=== PATIENT | female | born 1995 | race Caucasian/White ===

== ENCOUNTER 2022-05-26 12:34 | Outpatient (CLI) | payer OTHER, SELFPAY ==
--- NOTE | 2022-05-26 13:00 | CRLHL7_ITS ---
For Patients: As a result of the Cures Act, medical imaging exams and procedure reports are released immediately into your electronic medical record. You may view this report before your referring provider. If you have questions, please contact your health care provider. INDICATION: First trimester scan, establish dates. COMPARISON: None. TECHNIQUE: Real-time hamilton-scale imaging of the pelvis was performed. FINDINGS: Sonographic imaging demonstrates a single living intrauterine gestation. The embryo demonstrates a regular cardiac rate measuring 166 beats per minute. The embryo`s crown-rump length measurement of 4.8 cm corresponds to a gestational age of 11 weeks 4 days with a sonographic due date of 12/11/2022. There is a normal-appearing yolk sac. There are no gross abnormalities noted within the embryo at this early state of development. The gestational sac has a normal appearance. There is no evidence of a perigestational hemorrhage. The amount of fluid within the sac appears appropriate for gestational age. The cervix is closed. The myometrium appears normal. The ovaries are of normal size. Corpus luteal cyst right ovary. There are no suspicious fluid collections noted in the cul-de-sac. IMPRESSION: Normal first trimester OB ultrasound exam. Gestational age calculated at 11 weeks 4 days with a sonographic due date of 12/11/2022. Dictated by Malcolm Blackwell MD @ 05/27/2022 9:44:38 AM (Electronically Signed)
== END 2022-05-26 12:35 | disposition home or self-care (01) ==
LOC: US 12:36
PROVIDERS: Visit Provider Physician Assistant
DX: Z34.91 Encounter for supervision of normal pregnancy, unspecified, first trimester (principal); Z3A.11 11 weeks gestation of pregnancy
CPT/HCPCS: 76817

== ENCOUNTER 2022-05-26 14:16 | Outpatient (CLI) | payer OTHER, SELFPAY ==
[2022-05-26 20:33] LABS: Chlamydia DNA Amplified* NOT DETECTED (No Detected); GC DNA Amplified* NOT DETECTED (No Detected)
[2022-05-26 23:01] LABS: Hepatitis B Surface Antigen* Negative (Negative)
[2022-05-26 23:09] LABS: HIV 1/2/P24 Combo Screen* Negative (Negative)
[2022-05-26 23:18] LABS: Hepatitis C Virus Antibody* Negative (Negative)
[2022-05-30 01:45] LABS: Rapid Plasma Reagin (RPR) Non Reactive (Non Reactive)
[2022-05-30 03:09] LABS: Rubella Antibody IgG 28.4 IU/mL; Varicella-Zoster Virus Ab, IgG 693.3 IV
== END 2022-05-26 14:17 | disposition home or self-care (01) ==
PROVIDERS: Visit Provider Registered Nurse
DX: Z34.91 Encounter for supervision of normal pregnancy, unspecified, first trimester (principal); Z3A.11 11 weeks gestation of pregnancy
CPT/HCPCS: 86592; 86703; 86762; 86787; 86803; 86850; 86900; 86901; 87086; 87340; 87491; 87591

== ENCOUNTER 2022-07-27 12:55 | Outpatient (CLI) | payer OTHER, SELFPAY ==
--- NOTE | 2022-07-27 13:00 | CRLHL7_ITS ---
For Patients: As a result of the 21st Century Cures Act, medical imaging exams and procedure reports are released immediately into your electronic medical record. You may view this report before your referring provider. If you have questions, please contact your health care provider. [facility] ??? OB US CLINICAL HISTORY: anatomy screen. ERNESTO by US: 12/11/2022. GA: 20w, 3d. FINDINGS: position: Vertex. Technique: Transabdominal. Cervix: Visualized. Length of closed cervix: 3.6 cm. Placenta/cord: Anterior. Placenta tip to internal OS: 4.4 cm. Umbilical Cord: 3-vessel cord. Placenta insertion: Central. Amniotic Fluid: 5.6 cm SDP (greater than/equal to: 2- less than 8 cm). SURVEY: Observed Structures Calvarium/Spine: Cerebellum: 2.1 cm, 21w 1d. Cisterna Magna: 6.7 mm. Nuchal Fold: 3.2 mm. Lateral Ventricle: 7.4 mm. CSP: Yes. Midline Falx: Yes. Choroid Plexus: Yes. Spine: Yes. Abdomen: Stomach: Yes. Abd Cord Insertion: Yes. Urinary Bladder: Yes. Kidneys: Yes. Diaphragm: Yes. Face: Nose/lips: Yes. Orbital view: Yes. Profile: Yes. Limbs: Upper Extremities: Yes. Lower Extremities: Yes. Hands: Yes. Feet: Yes. Vascular: Four-Chamber Heart: Yes. LVOT: suboptimal RVOT: Yes. 3VV: No. 3VTV: Yes. BPD: 4.9 cm. 20w 6d, 65 percent. HC: 18.6 cm. 20w 6d, 64 percent. AC: 16.1 cm. 21w 2d, 70 percent. FL: 3.7 cm. 21w 5d, 84 percent. FL/AC: 23 percent. HC/AC Ratio: 1.2. Heart rate: 138 beats per minute. age by this US: 21w 1d. ERNESTO by this US: 12/06/2022. EFW: 420.3 g. Weight: 0 lbs, 15 oz. Percentile by ERENSTO: 91 percent. IMPRESSION: Single live intrauterine gestation. There are no gross anomalies visualized. Left ventricular outflow tract suboptimally seen. DREA CUNNINGHAM M.D. Transcribed: 5:05 p.m. [email or web address] be/Dictated by: Drea Cunningham MD @ 07/27/2022 2:22:00 PM (Electronically Signed)
== END 2022-07-27 12:56 | disposition home or self-care (01) ==
LOC: US 12:55
PROVIDERS: PCP Registered Nurse; Visit Provider Registered Nurse
DX: Z34.92 Encounter for supervision of normal pregnancy, unspecified, second trimester (principal); Z3A.20 20 weeks gestation of pregnancy
CPT/HCPCS: 76805

== ENCOUNTER 2022-08-12 15:59 | Outpatient (CLI) | payer OTHER, SELFPAY ==
--- NOTE | 2022-08-12 16:00 | CRLHL7_ITS ---
For Patients: As a result of the Century Cures Act, medical imaging exams and procedure reports are released immediately into your electronic medical record. You may view this report before your referring provider. If you have questions, please contact your health care provider. INDICATION: Follow-up LVOT COMPARISON: 07/27/2022 TECHNIQUE: Real time hamilton scale imaging of the fetus was performed. FINDINGS: Sonographic imaging demonstrates a single living intrauterine gestation. Fetus demonstrates a regular cardiac rate of 152 beats per minute. Fetus has a vertex position. The placenta lies anteriorly. Amniotic fluid volume appears normal. Single deepest vertical pocket: 4.8 cm. The LVOT is normal. Nose and lips appear normal. Normal RVOT and three-vessel view. IMPRESSION: Normal LVOT. Dictated by Malcolm Blackwell MD @ 08/13/2022 11:56:42 AM (Electronically Signed)
== END 2022-08-12 16:00 | disposition home or self-care (01) ==
LOC: US 16:00
PROVIDERS: PCP Registered Nurse; Visit Provider Obstetrics & Gynecology
DX: O35.8XX0 Maternal care for other (suspected) fetal abnormality and damage, not applicable or unspecified (principal); Z3A.00 Weeks of gestation of pregnancy not specified
CPT/HCPCS: 76816

== ENCOUNTER 2022-09-18 10:48 | Outpatient (CLI) | payer OTHER, SELFPAY | END 2022-09-18 10:49 | disposition home or self-care (01) | LOC: NFLDREF 10:51 | PROVIDERS: PCP Registered Nurse; Visit Provider Obstetrics & Gynecology | DX: O26.893 Other specified pregnancy related conditions, third trimester (principal); Z67.91 Unspecified blood type, Rh negative; Z3A.28 28 weeks gestation of pregnancy | CPT/HCPCS: 85461; 86592; 86850; J2791 ==

== ENCOUNTER 2022-09-27 20:52 | Outpatient (CLI) | payer OTHER, SELFPAY ==
[2022-09-27 20:34] VITALS: BP 131/81; PULSE 85; RESP 20; TEMP 36.2; O2SAT 98
--- NOTE | 2022-09-27 20:48 | ED.GENADULT ---
HPI - General Adult General Chief complaint: Urogenital Problems, Female Stated complaint: Possible UTI Time Seen by Provider: 09/27/22 20:45 History of Present Illness HPI narrative: increased urination frequency. cramping rated 8/10. pt also complains of racing heart. pt 29 weeks . 26-year-old woman presenting to emergency department Related Data Home Medications Medication Instructions Recorded Confirmed albuterol sulfate 90 mcg/actuation g inhalation 05/26/22 10/13/22 aerosol inhaler (Ventolin HFA) aspirin 81 mg tablet,delayed 81 mg PO QDAY 07/27/22 10/13/22 release (Adult Low Dose Aspirin) docosahexaenoic acid 200 mg mg PO 07/27/22 10/13/22 capsule ( DHA) loratadine 10 mg tablet (Claritin) 10 mg PO QDAY 08/20/22 10/13/22 Allergies Allergy/AdvReac Type Severity Reaction Status Date / Time Penicillins Allergy Intermediate itching Verified 10/13/22 11:52 and swelling sulfamethoxazole Allergy Mild Unknown Verified 10/13/22 11:52 [From Bactrim] trimethoprim [From Bactrim] Allergy Mild Unknown Verified 10/13/22 11:52 PFSH PFSH Family History Other Anxiety Cerebrovascular disease Coronary artery disease Depression Diabetes High blood pressure Social History What is your current living situation?: I presently have a place to live Problems where you live: no known problems In the past 12 months, utilities in danger of being shut off: no In the past 12 mos, have been you worried that your food would run out before you had money to buy more?: never true In the past 12 mos, the food you bought just didn't last and you didn't have money to buy more?: never true Smoking Status: Never smoker How often does anyone, including family, friends and others, physically hurt you: never How often does anyone, including family, friends and others, insult or talk down to you: never How often does anyone, including family, friends and others, threaten you with harm: never How often does anyone, including family, friends and others, scream or curse at you: never Little interest or pleasure in doing things: not at all Feeling down, depressed, or hopeless: not at all Exam Const: Vital Signs, click to edit/add: Vital Signs - 24 hr 09/27/22 20:34 Temperature 97.2 F L Pulse Rate [Left P ulse Oximeter] 85 Respiratory Rate 20 Blood Pressure [Ri ght Upper Arm] 131/81 Pulse Oximetry 98 Oxygen Delivery Me thod Room Air Course Vital Signs Vital signs: Initial Vital Signs Temperature 97.2 F L 09/27/22 20:34 Temperature Source Temporal Artery Scan 09/27/22 20:34 Pulse Rate 85 09/27/22 20:34 Pulse Rhythm Regular 09/27/22 20:34 Respiratory Rate 20 09/27/22 20:34 Blood Pressure 131/81 09/27/22 20:34 Blood Pressure Mean 97 09/27/22 20:34 Blood Pressure Position Sitting 09/27/22 20:34 Pulse Oximetry 98 09/27/22 20:34 Oxygen Delivery Method Room Air 09/27/22 20:34 Vital Signs Temperature 97.2 F L 09/27/22 20:34 Pulse Rate 85 09/27/22 20:34 Respiratory Rate 20 09/27/22 20:34 Blood Pressure 131/81 09/27/22 20:34 Pulse Oximetry 98 09/27/22 20:34 Oxygen Delivery Method Room Air 09/27/22 20:34 Temperature 98.5 F 09/27/22 21:58 Pulse Rate 85 09/27/22 20:34 Respiratory Rate 18 09/27/22 21:58 Blood Pressure 118/58 L 09/27/22 21:58 Pulse Oximetry 98 09/27/22 20:34 Oxygen Delivery Method Room Air 09/27/22 21:58 Medical Decision Making Lab Data Labs: Lab Results 09/27/22 09/27/22 Range/Units 20:49 21:24 Urine Color Yellow (Yellow) Urine Appearance Clear (Clear) Urine pH 7.0 (5.0-8.5) Ur Specific [place] 1.015 (1.000-1.030) Urine Protein Negative (Negative) Urine Glucose (UA) Negative (Negative) Urine Ketones Negative (Negative) Urine Blood Negative (Negative) Urine Nitrite Negative (Negative) Urine Bilirubin Negative (Negative) Urine Urobilinogen 0.2 (0.2-1.0) Ur Leukocyte Esterase Negative (Negative) Urine RBC 0-2 (0-2) Urine WBC 0-2 (0-5) Ur Squamous Epith Cells Few (None-Few) Urine Bacteria Moderate A (None) Vaginal Trichomonas No Trichomonas Seen (None Seen) Vaginal Yeast No Yeast Seen (None Seen) Vaginal Clue Cells No Clue Cells Seen (None Seen) Discharge Plan Discharge Disposition: Home, Self-Care Primary Care Provider: Jeanna Tejada Patient Instructions: Urinary Tract Infection in (DC) Activity Restrictions/Additional Instructions: Patient verbalized understanding of reviewed discharge instructions. Follow up on as Scheduled. Bring your health care directive. Discharge Orders: Discharge Order (Routine); Ordered 09/27/22 Ordered By: Kathia Valenzuela Discharge Medications: No Action albuterol sulfate [Ventolin HFA] 90 mcg/actuation HFA aerosol inhaler inhalation Patient Comments: INHALE 1-2 PUFFS BY MOUTH EVERY 4 HOURS NEEDED FOR SHORTNESS OF BREATH / DYSPNEA OR WHEEZING DHA 200 mg capsule PO aspirin [Adult Low Dose Aspirin] 81 mg tablet,delayed release (DR/EC) 81 mg PO QDAY loratadine [Claritin] 10 mg tablet 10 mg PO QDAY Forms: [employer] Info Instructions
[2022-09-27 20:56] LABS: Appearance Urine Clear (Clear); Bilirubin Urine Negative (Negative); Blood Urine Negative (Negative); Color Urine Yellow (Yellow); Glucose Urine Negative (Negative); Ketones Urine Negative (Negative); Leukocyte Esterase Urine Negative (Negative); Nitrite Urine Negative (Negative); Protein Urine Negative (Negative); Specific Gravity Urine 1.015 (1.000-1.030); Urobilinogen Urine 0.2 (0.2-1.0)
[2022-09-27 21:03] LABS: Bacteria Urine Moderate; RBC Urine 0-2 (0-2); Squamous Epithelial Cell Urine Few (None-Few); WBC Urine 0-2 (0-5)
[2022-09-27 21:41] LABS: Clue Cells No Clue Cells Seen (None Seen); Trichomonas No Trichomonas Seen (None Seen); Yeast No Yeast Seen (None Seen)
[2022-09-27 21:58] VITALS: BP 118/58; RESP 18; TEMP 36.9
--- NOTE | 2022-09-27 22:20 | PC.OBNST ---
NST Note NST Note Start: 09/27/22 21:00 Freq: ONCE Status: Active Protocol: Document 09/27/22 22:19 AM (Rec: 09/27/22 22:20 AM [id number]) NST Note 1 Para (# of births) 0 EDC 12/11/22 Gestational Age In Weeks & Days 29 Weeks & 2 Days Patient Presented with Complaint(s) of Other Other Complaints vaginal infection vs UTI symptoms Reactive Yes Appropriate for Gestational Age Yes RN Aminer RNC Date 09/27/22 Reactive Yes Appropriate for Gestational Age Yes RN Desiree RN Date 09/27/22 OB NST charge Yes Complete NST Note via Write Note Yes The provider's electronic signature indicates the NST is reactive/appropriate for gestational age. *Note to provider: If an addendum is required, open the patient's chart and click on the note under the Nurse/Allied Health tab.
== END 2022-09-27 22:15 | disposition home or self-care (01) ==
LOC: OB OUT 20:53 → OB 21:25
PROVIDERS: Obstetrics & Gynecology; PCP Registered Nurse; Visit Provider Family Medicine
DX: O21.9 Vomiting of pregnancy, unspecified (principal); Z3A.28 28 weeks gestation of pregnancy
CPT/HCPCS: 59025; 81001; 81003; 87086; 87210; 99213

== ENCOUNTER 2022-09-29 18:00 | Outpatient (CLI) | payer OTHER, SELFPAY ==
[2022-09-29 18:11] VITALS: PULSE 95; O2SAT 97
[2022-09-29 18:12] VITALS: BP 107/62; PULSE 97
[2022-09-29 18:13] VITALS: RESP 17; TEMP 37.1
[2022-09-29] MEDS: LACTATED RINGERS 1000 ML 1,000 ML IV (18:54)
--- NOTE | 2022-09-29 19:49 | PC.OBNST ---
NST Note NST Note Start: 09/29/22 18:06 Freq: ONCE Status: Active Protocol: Document 09/29/22 19:48 RAINER (Rec: 09/29/22 19:49 RAINER [id number]) NST Note 1 Para (# of births) 0 EDC 12/21/22 Gestational Age In Weeks & Days 28 Weeks & 1 Days Patient Presented with Complaint(s) of Nausea and vomiting Reactive Yes Appropriate for Gestational Age Yes MARINO Bloom RN Date 09/29/22 Reactive Yes Appropriate for Gestational Age Yes MARINO Goldberg RNC Date 09/29/22 OB NST charge Yes Complete NST Note via Write Note Yes The provider's electronic signature indicates the NST is reactive/appropriate for gestational age. *Note to provider: If an addendum is required, open the patient's chart and click on the note under the Nurse/Allied Health tab.
== END 2022-09-29 20:00 | disposition home or self-care (01) ==
LOC: OB OUT 18:02 → OB 18:03
PROVIDERS: PCP Registered Nurse; Visit Provider Obstetrics & Gynecology
DX: O21.2 Late vomiting of pregnancy (principal); Z3A.28 28 weeks gestation of pregnancy
CPT/HCPCS: 51798; 59025; 99213; J7120

== ENCOUNTER 2022-10-27 14:22 | Outpatient (CLI) | payer OTHER, SELFPAY | END 2022-10-27 14:23 | disposition home or self-care (01) | LOC: NFLDREF 14:23 | PROVIDERS: PCP Registered Nurse; Visit Provider Obstetrics & Gynecology | DX: Z34.93 Encounter for supervision of normal pregnancy, unspecified, third trimester (principal); Z3A.33 33 weeks gestation of pregnancy | CPT/HCPCS: 87086 ==

== ENCOUNTER 2022-11-13 12:00 | Outpatient (CLI) | payer OTHER, SELFPAY | END 2022-11-13 12:01 | disposition home or self-care (01) | LOC: NFLDREF 11-15 09:08 | PROVIDERS: Referring Provider Registered Nurse; Visit Provider Obstetrics & Gynecology | DX: Z34.93 Encounter for supervision of normal pregnancy, unspecified, third trimester (principal); Z3A.36 36 weeks gestation of pregnancy | CPT/HCPCS: 87081; 87653 ==

== ENCOUNTER 2022-11-26 13:18 | Outpatient (CLI) | payer OTHER, SELFPAY ==
[2022-11-26 13:44] VITALS: BP 126/59; PULSE 79; PULSE 83; O2SAT 94
[2022-11-26 14:15] LABS: Amnisure Rom* Negative; Clue Cells No Clue Cells Seen (None Seen); Trichomonas No Trichomonas Seen (None Seen); Yeast No Yeast Seen (None Seen)
--- NOTE | 2022-11-26 14:20 | CRLHL7_ITS ---
For Patients: As a result of the Cures Act, medical imaging exams and procedure reports are released immediately into your electronic medical record. You may view this report before your referring provider. If you have questions, please contact your health care provider. HISTORY: Evaluate for premature rupture of membranes. COMPARISON: Additional ultrasound images from 08/12/2022. TECHNIQUE: Ultrasound examination of the is performed with transabdominal technique. FINDINGS: A single intrauterine gestation is seen in cephalic presentation with regular cardiac activity at 150 beats per minute. The placenta is anterior and is free of the cervical os. The placental grade is II and the amniotic fluid volume is normal. Single deepest vertical pocket: Normal at 6.7 cm. IMPRESSION: Single intrauterine gestation in cephalic presentation with regular cardiac activity. Amniotic fluid volume normal, single deepest vertical pocket normal at 6.7 centimeters. Dictated by Bronson Bella MD @ 11/26/2022 4:37:14 PM (Electronically Signed)
--- NOTE | 2022-11-26 15:12 | PC.OBNST ---
NST Note NST Note Start: 11/26/22 13:32 Freq: ONCE Status: Active Protocol: Document 11/26/22 15:00 ABP (Rec: 11/26/22 15:12 ABP [id number]) NST Note 1 Para (# of births) 0 EDC 12/11/22 Gestational Age In Weeks & Days 37 Weeks & 6 Days Patient Presented with Complaint(s) of Leaking fluid Reactive Yes MARINO Goldberg RN Date 11/26/22 Reactive Yes MARINO Franco RN Date 11/26/22 OB NST charge Yes Complete NST Note via Write Note Yes The provider's electronic signature indicates the NST is reactive/appropriate for gestational age. *Note to provider: If an addendum is required, open the patient's chart and click on the note under the Nurse/Allied Health tab.
== END 2022-11-26 15:00 | disposition home or self-care (01) ==
LOC: OB OUT 13:24 → OB 13:24
PROVIDERS: Visit Provider Obstetrics & Gynecology
DX: O47.1 False labor at or after 37 completed weeks of gestation (principal); Z3A.37 37 weeks gestation of pregnancy
CPT/HCPCS: 59025; 76815; 84112; 87210; 99213

== ENCOUNTER 2022-12-10 17:02 | Inpatient (IN) | payer OTHER, SELFPAY ==
[2022-12-10 17:16] VITALS: BP 120/70; PULSE 85; RESP 16; TEMP 36.5
[2022-12-10 17:58] VITALS: BMI 40.4
--- NOTE | 2022-12-10 18:00 | W.PM.LDBA ---
Subjective History of Present Illness Date Seen: 12/10/22 Narrative: Patient is being admitted to Labor and Delivery for elective IOL. She is a 27 year old at 39 6/7 weeks gestation. Her full history and physical was dictated by Dr. Saldaña on 11/18/22. Please see this for details. Specific Issues/Plans H&P done 11/18/[address] Saldaña. GBS+: VANCOMYCIN for prophylaxis G 1 P 0 : [place] 1. BMI 34.9 hgb A1C 5.1% Rec. ASA at 12 weeks - 36 weeks 2. H/o back injury. Xray and MRI @ ~7wks. Has f/u appt. re: back pain. Herniated disc L5-S1. Responding to physical therapy 3. Rh NEGATIVE. RhoGAM at 28 weeks. 4. EFW 91% on anatomy scan. Follow clinically. Flu vaccine administered today. Recommended covid vaccine. Tdap:10/13/22 OB - Problem Based A/P Additional Plan (1) Encounter for induction of labor: Status: Acute Plan 1. Elective IOL: Cook catheter placed, 50mL/50mL. Will plan to start IV Oxytocin at around 9:30-10pm, low dose as per protocol. 2. GBS positive will need Vancomycin, will plan to start once we start IV Oxytocin. 3. Pain management as per patient requests. 4. Continuous monitoring while on Oxytocin. OB Exam Physical Exam Vital signs: Pulse BP 85 120/70 12/10/22 17:16 12/10/22 17:16 Detailed Labor and Delivery Exam Patient Gravid: Yes Dilation (cm): 1 Effacement (%): 50 Cervix position: mid Consistency: medium Tachysystole: No Fetus (Single) Station: -3 Amniotic Membrane Status: intact Heart Rate Baseline: 130 Monitor Accelerations: Present Monitor Decelerations: None Skilled Nursing Variability: Moderate (6-25)
[2022-12-10 18:46] LABS: Hematocrit 38.1 % (33.0-51.0); Hemoglobin* 12.7 gm/dL (12.0-16.0); Mean Corpuscular HGB Conc 33 gm/dL (32-36); Mean Corpuscular Hemoglobin 29 pg (26-34); Mean Corpuscular Volume 87 fL (80-100); Platelet Count* 250 K/uL (140-440); Red Blood Count 4.38 m/uL (4.00-5.20); Slide Review Reflex No; White Blood Count* 11.68 K/uL (4.50-11.00)
[2022-12-10 19:04] LABS: Alanine Aminotransferase* 22 U/L (4-35); Aspartate Amino Transferase* 26 U/L (12-35); Blood Urea Nitrogen* 6 mg/dL (5-24); Creatinine* 0.5 mg/dL (0.5-1.5); Est. Creatinine Clearance* 152.08; Estimated Glomerular Filt Rate 132 ml/min
[2022-12-10 19:04] LABS: Total Protein Urine 18 mg/dL
[2022-12-10 19:05] LABS: Creatinine Urine 58.8 mg/dL
[2022-12-10 19:23] VITALS: BP 137/80; PULSE 98
[2022-12-10 22:13] VITALS: BP 132/66; PULSE 84
[2022-12-10] MEDS: LACTATED RINGERS 1000 ML 1,000 ML 125 ML IV (22:13)
[2022-12-10] MEDS: OXYTOCIN 30 unit/500 ML in NS 30 UNIT/500 ML BAG IVPB (22:14)
[2022-12-10] MEDS: hydrOXYzine pamoate 25 MG CAPSULE 100 MG PO (22:23)
[2022-12-10] MEDS: MORPHINE 10 MG/ML inj IM (22:24)
[2022-12-10 22:26] VITALS: RESP 16; TEMP 36.4
[2022-12-10 23:03] VITALS: BP 116/60; PULSE 84; RESP 16; TEMP 36.9
[2022-12-11] VITALS (108 sets, daily range): BP systolic 91–149; BP diastolic 45–86; PULSE 69–117; RESP 16–98; TEMP 36.5–37.7; O2SAT 96–100
[2022-12-11] MEDS: LACTATED RINGERS 1000 ML 1,000 ML 125 ML IV ×3 (07:38→13:01)
[2022-12-11] MEDS: fentaNYL 100 MCG/2 ML inj IVP ×2 (08:24→09:36)
--- NOTE | 2022-12-11 09:09 | P.OBPN_ITS ---
Subjective Time Seen by Provider: 07:30 Date Seen: 12/11/22 Narrative: Okay, was able to sleep last night. Objective Vital Signs: Last Vital Signs Temp 98.4 F 12/11/22 07:19 Pulse 106 H 12/11/22 07:19 Resp 16 12/11/22 07:19 BP 126/79 12/11/22 07:19 Pulse Ox 98 12/11/22 09:06 Pelvic Exam Dilation (cm): 5 Effacement (%): 75 Station: -2 Contractions Monitor mode: External Contraction pattern: Regular Contraction intensity: Moderate Pitocin Rate (mU/min): 5 Assessment Assessment: induction ongoing Station: -2 Amniotic Membrane Status: AROM Status: Category l Heart Rate Baseline: 130 Councilperson Variability: Moderate (6-25) Monitor Accelerations: Present Monitor Decelerations: Variable (Sporadic) Plan Plan: 1. S/P AROM, continue to titrate Oxytocin. 2. Continue with Vancomycin until delivery. 3. Patient has requested epidural. 4. Will avoid multiple cervical checks.
[2022-12-11] MEDS: ROPIVACAINE 0.2% 100 ml 100 ML 12 MG EPIDURAL ×2 (10:12→18:06)
[2022-12-11] MEDS: PHENYLEPHRINE 100 MCG/ML SYRINGE IVP ×2 (10:27→10:51)
[2022-12-11] MEDS: ePHEDrine sulfate 5 MG/ML inj 10 MG IVP (11:00)
--- NOTE | 2022-12-11 15:45 | P.OBPN_ITS ---
Subjective Time Seen by Provider: 15:45 Date Seen: 12/11/22 Narrative: Ok Objective Vital Signs: Last Vital Signs Temp 98.1 F 12/11/22 13:21 Pulse 87 12/11/22 15:36 Resp 16 12/11/22 07:19 BP 110/56 L 12/11/22 15:36 Pulse Ox 99 12/11/22 11:19 Pelvic Exam Dilation (cm): 6 Effacement (%): 90 Station: -2 Comments: Asynclitic towards maternal right hip. Small molding. Contractions Monitor mode: Internal Contraction pattern: Regular Contraction intensity: Moderate Pitocin Rate (mU/min): 7 Assessment Assessment: induction ongoing Station: -2 Amniotic Membrane Status: AROM Status: Category l Heart Rate Baseline: 130 Senior Living Variability: Moderate (6-25) Monitor Accelerations: Present Monitor Decelerations: Variable (Sporadic) Tracing Comments: Had an episode of repetitive late decelerations after epidural placement, Oxytocin was d/c for about 1 hour. Hypotension treated, position changes, internal monitors placed, baby recovered well, Oxytocin re started, still inadequate. Labor Progress: Protracted Plan Plan: Continue to increase oxytocin to get to adequate intensity of uterine contractions. Continue position changes. Will plan to re check cervix in about 2-3 hours. Discussed my concern of station and position. If baby is still at this station at her next check, she will meet criteria for recommendation of delivery. Will follow up closely.
--- NOTE | 2022-12-11 18:33 | P.OBPN_ITS ---
Subjective Time Seen by Provider: 18:33 Date Seen: 12/11/22 Narrative: Ok Objective Vital Signs: Last Vital Signs Temp 97.8 F 12/11/22 16:36 Pulse 93 12/11/22 18:21 Resp 16 12/11/22 07:19 BP 127/63 12/11/22 18:21 Pulse Ox 99 12/11/22 11:19 Pelvic Exam Dilation (cm): 6-7 Effacement (%): 90 Station: -1 Contractions Monitor mode: Internal Contraction pattern: Regular Contraction intensity: Moderate Pitocin Rate (mU/min): 10 Assessment Assessment: induction ongoing Station: -1 Amniotic Membrane Status: AROM Status: Category ll Heart Rate Baseline: 130 Municipal Services Manager Variability: Moderate (6-25) Monitor Accelerations: Present Monitor Decelerations: Late (Sporadic) Tracing Comments: Sporadic late decelerations depending on positioning. Plan Plan: Cervix essentially unchanged, station essentially unchanged. Patient has been more than 6 hours in the active phase of labor. Meets criteria for arrest in dilation. Recommendation given to proceed with delivery. Discussed how surgery is performed, risks such as bleeding and needing a blood transfusion, risk of infection, damage to nearby organs, blood clots. Discussed interventions to decrease risks such as prophylactic antibiotics, SCDs etc... Will plan to give TXA after cord clamping due to IOL and prolonged exposure to Oxytocin. Also, discussed that I would want them to discuss recommendation and if she is interested in any additional time, right now NST is reassuring there is no sign of infection etc... but my suspicion is that baby is large and asynclitic and has not come down as expected by now. Patient and have agreed and will proceed with delivery.
--- NOTE | 2022-12-11 19:31 | P.OBPRC_ITS ---
Procedure Date of procedure: 12/11/22 Pre-op diagnosis: Arrest of dilation Post-op diagnosis: same (Meckel's diverticulum-removed by general surgery) Procedure Done: Global Will [facility] bill your pro fee for this procedure?: Yes Blood Loss Measurement Type: QBL Bakri Used: No Urine Output (mL): 160 Surgeon: Della Smyth MD Anesthesia type: Epidural Findings: FINDINGS: Live-born male infant, vertex ROT presentation, Apgars 8 and 9 at 1 and 5 minutes respectively. weight 7 lb 10 oz. Bowel segment identified to be attached to the anterior peritoneum over the bladder. This was eventually identified to be a Meckel's diverticulum. Procedure Description: PREOPERATIVE DIAGNOSES: 1. Intrauterine at 40 0/7 /7 weeks' gestation. 2. Arrest of dilation POSTOPERATIVE DIAGNOSES: 1. Intrauterine at 40 0/7 weeks' gestation. 2. Arrest of dilation. 3. Meckel's diverticulum NAME OF PROCEDURE: Primary low transverse section. PROCEDURE: After obtaining informed consent, the patient was taken to the operating room where epidural anesthesia was obtained and found to be adequate. She was prepared and draped in the normal sterile fashion in the dorsal supine position with a leftward tilt. A Pfannenstiel skin incision was made with a scalpel about 2 cm above symphysis pubic bone, 8-10 cm in length. This incision was carried down to the underlying layer of fascia with the Bovie and scalpel. The fascia was incised in the midline and the incision extended laterally. The rectus muscles were then in the midline. I then identified what looked like a loop of bowel or maybe a inflamed appendix to be attached to the anterior peritoneum, this had to be mobilized to be able to access the lower uterine segment. I then was able to identify a part of avascular peritoneal tissue and was able to create a window with cautery, this was at least 2cm away from the end of this structure. I was then able to place long Cherie clamps to cut and suture ligate the ends and this released the structure and I was able to proceed with delivery. By this time I had asked for a intra op consult to general surgery. The Tahir O retractor was then placed into the incision. The lower uterine segment was then incised in a transverse fashion with the scalpel. Upon entry into the uterus, clear amniotic fluid was noted. The uterine incision was extended cephalo caudally with blunt finger fractionation. The infant's head was delivered atraumatically, followed by the remainder of the 's body. The nose and mouth were suctioned with the bulb suction. The cord was doubly clamped and cut and the was handed off the field for evaluation. The placenta was delivered spontaneously with umbilical cord traction and fundal massage. The uterus was cleared of all clots and debris. The uterine incision was reapproximated in a running locking fashion with a 0 Vicryl suture. A 2nd layer of the same suture was used to imbricate in horizontal fashion. The gutters were inspected and cleared of blood clot. I was able to identify a normal appendix and able to identify this structure to be an outpouching from the small intestine like a diverticulum. We then waited for general surgeon and upon arrival structure was identified to be a Meckel's diverticulum. Please refer to general surgery note for complete details. All instruments and retractors were removed. Peritoneum was approximated with Vicryl 3-0. The subfascial tissues were carefully inspected and hemostasis assured. The fascia was reapproximated in a running fashion with a looped 0 PDS suture. The subcutaneous tissues were inspected and hemostasis was assured, irrigated. The subcutaneous fat layer was reapproximated with interrupted sutures of 3-0 Vicryl. The skin was closed in a subcuticular fashion with 4-0 Monocryl. Silver dressing applied. The patient tolerated the procedure well. Sponge, lap, needle, and instrument counts were reported as correct x2. The patient was t aken to the recovery room, awake, and in stable condition. She did receive 2 grams of IV Ancef and Azithromycin preoperatively. General surgery does not recommend at this time any changes in antibiotic or diet regimen. Condition: stable Disposition: floor OB Delivery Proc Additional Procedures Tubal Ligation at the time of : No Other: Yes (Removal of Meckel's diverticulum by general surgery)
[2022-12-11] MEDS: TRANEXAMIC ACID 100 MG/ML INJ 1000 MG IV (20:08)
[2022-12-11] MEDS: miSOPROStoL 800 MCG/4 TABLET PR (20:15)
[2022-12-11] MEDS: AZITHROMYCIN 500 MG in 0.9 % SODIUM CHLORIDE 250 ml 250 ML 255 MG IVPB (20:25)
[2022-12-11] MEDS: KETOROLAC 30 MG/ML inj IVP (20:56)
--- NOTE | 2022-12-11 21:04 | PM.GSPRC ---
Operative Note Pre-op diagnosis: 1. Primary . Post-op diagnosis: 1. Meckel's diverticulum. Type of Procedure: 1. Meckel's diverticulectomy. Indications: 27-year-old female was undergoing primary . I was requested for an intraoperative consultation regarding a dilated tubular structure that was adherent to the . This was mobilized by Dr. Bah but it was not clear if the lumen of the GI tract was intact and if this should be resected. Procedure Description: When I entered the operating room patient was under epidural anesthesia. The Pfannenstiel incision was open and the baby was already delivered. The uterus was closed. The small bowel segment of concern was delivered through the Pfannenstiel incision. There was evidence of Meckel's diverticulum with a broad base. The cecum was examined and the appendix was visualized and was normal in appearance. The Meckel's diverticulum was approximately 2 ft proximal to the ileocecal valve. It did not appear to be thickened or inflamed at its base but the tip of the Meckel's diverticulum, which was mobilized, was somewhat thickened. There were no serosal tears noted. I discussed with the patient and her who was present in the operating room that Mekel's diverticulum is a congenital condition. Given patient's surgery and manipulation of this Meckel's diverticulum I would be concerned that it could get inflamed. I recommended to proceed with Meckel's diverticulectomy. Patient and her gave me verbal consent intraoperatively. I used a blue load of ANJANA stapler to staple the diverticulum at the base staying slightly distal to the small bowel lumen to avoid future strictures. The diverticulum was sent to pathology. The staple line had minimal bleeding and that was oversewn with 3-0 silk sutures. The small bowel lumen was widely patent. At this time all the dirty instruments and surgeon's gloves were changed. Dr. Bah proceeded with incisional closure and I exited the operating room. Findings: Meckel's diverticulum adherent to the uterus and mobilized during Caesarean. Anesthesia: epidural Surgeon: Leif Angelo MD Estimated blood loss (mL): 2 Additional Specimen Information: 1. Meckel's diverticulum. Condition: stable Disposition: no change Date of procedure: 12/11/22
--- NOTE | 2022-12-11 21:15 | SUR.OPER ---
tap block completed per glassware defect repairer post procedure
--- NOTE | 2022-12-11 21:53 | W.ANESCHARGE ---
Anesthesia Charges Start Date/Time Anesthesia Start Date: 12/11/22 Anesthesia Start Time: 19:34 Stop Date/Time Anesthesia Stop Date: 12/11/22 Anesthesia Stop Time: 21:42
--- NOTE | 2022-12-11 21:57 | P.NB_ITS ---
Nerve Block Nerve Block Time Seen by Provider: 21:38 Date Seen: 12/11/22 Type of block requested by surgeon for post-operative analgesia: TAP Side: bilateral Time out performed: Yes Verification of patient name: Yes Verification of date of : Yes Site marking: site marked Name of person performing procedure: Baljinder Avendano Continuous monitoring Was continuous monitoring of O2 sat, B/P, environmental monitoring technician, recorded every 15 minutes?: Yes Procedure Checklist: sterile prep, needles and gloves Ultrasound guided. Images saved: Yes Medications given in 5ml increments after negative aspiration: Marcaine %: 0.25 mL: 30 Needle gauge: 20 and Exparel mL: 10 Needle gauge: 20 Patient tolerated procedure well: Yes Additional comments: Injected in 5ml increments after negative aspiration Block Charges Block Charge (with Pro Fee): TAP Bilateral Use of Ultrasound Machine for Block: Yes- US Guidance/pain block
[2022-12-11] MEDS: ACETAMINOPHEN 500 MG TABLET 1000 MG PO (22:29)
[2022-12-12] VITALS (24 sets, daily range): BP systolic 106–124; BP diastolic 69–77; PULSE 75–88; RESP 15–18; TEMP 36.6–36.9; O2SAT 95–99
[2022-12-12] MEDS: KETOROLAC 30 MG/ML inj IVP ×4 (03:08→20:39)
[2022-12-12] MEDS: ACETAMINOPHEN 500 MG TABLET 1000 MG PO ×4 (04:22→23:54)
[2022-12-12 07:00] LABS: Hemoglobin* 10.4 gm/dL (12.0-16.0)
[2022-12-12] MEDS: DOCUSATE SODIUM 100 MG CAPSULE PO (09:12)
[2022-12-12] MEDS: ENOXAPARIN 40 MG/0.4 ML INJ SUBCUT (09:12)
--- NOTE | 2022-12-12 10:22 | PM.OBPNVD1 ---
OB - PN:Subj Subjective Date Seen: 12/12/22 Patient comments OB post-: no complaints, pain well controlled and tolerating diet infant status: Narrative: The patient is a 27 yo G1 now P1001 who is s/p a primary low transverse section last evening for arrest of dilation. At the time of surgery, she was found to have a Meckel's Diverticulum, which was removed by General Surgery. OB - PN: Obj Exam Physical Exam: Vital signs: Temp Pulse Resp BP Pulse Ox O2 Del Method 97.9 F 78 16 106/69 95 Room Air 12/12/22 09:12 12/12/22 08:18 12/12/22 08:18 12/12/22 08:18 12/12/22 08:18 12/12/22 08:18 Constitutional: Constitutional: no acute distress Routine Neck Exam: Neck: Present normal inspection Routine Respiratory Exam: Respiratory: Present CTA bilaterally; Absent respiratory distress Routine Cardiovascular Exam: Cardiovascular: Present RRR; Absent murmur Routine Abdominal Exam: Abdominal: Present soft; Absent tenderness Fundus: Present firm Routine Extremities Exam: Extremities: Present normal inspection and pedal edema; Absent calf tenderness Routine Neurological Exam: Neurological: Present alert and oriented X3 Routine Psychiatric Exam: Psychiatric: Present normal affect Wound Management: Method: suture Examination: Present clean and dry; Absent erythematous Comments: Pfannenstiel incision, Silver dressing present Urinary Catheter Management: Urethral: Cath placed during this visit: no Reason for continuing: surgical procedure OB - PN: Obj Data Labs Labs: Laboratory Results - last 24 hr 12/10/22 12/11/22 12/12/22 18:39 06:52 06:52 Hgb 10.4 L Blood Type A Negative Antibody Screen NEGATIVE Screen Negative OB - PN: A/P Delivery Assessment and Plan (1) S/P section: Problem details: Stable Status: Acute Plan day: 1 Plan: routine care
[2022-12-13 03:04] VITALS: BP 124/76; PULSE 80; RESP 16; TEMP 36.5; O2SAT 96
[2022-12-13] MEDS: KETOROLAC 30 MG/ML inj IVP (03:04)
[2022-12-13] MEDS: ACETAMINOPHEN 500 MG TABLET 1000 MG PO ×3 (05:57→19:16)
[2022-12-13] MEDS: IBUPROFEN 600 MG TABLET PO ×3 (08:58→21:11)
[2022-12-13] MEDS: DOCUSATE SODIUM 100 MG CAPSULE PO (08:59)
[2022-12-13] MEDS: ENOXAPARIN 40 MG/0.4 ML INJ SUBCUT (09:01)
--- NOTE | 2022-12-13 09:25 | PM.OBPNVD1 ---
OB - PN:Subj Subjective Date Seen: 12/13/22 Patient comments OB post-: no complaints infant status: Narrative: Feels well. Ambulating. Uncomfortable in the low right abdomen at the site of the fascial knot. Passing flatus. OB - PN: Obj Exam Physical Exam: Vital signs: Temp Pulse Resp BP Pulse Ox O2 Del Method 97.7 F 80 16 124/76 96 Room Air 12/13/22 03:04 12/13/22 03:04 12/13/22 03:04 12/13/22 03:04 12/13/22 03:04 12/13/22 03:04 Constitutional: Constitutional: no acute distress Routine Abdominal Exam: Abdominal: Present soft; Absent tenderness Fundus: Present firm Routine Extremities Exam: Extremities: Present normal inspection and pedal edema; Absent calf tenderness Routine Neurological Exam: Neurological: Present alert and oriented X3 Routine Psychiatric Exam: Psychiatric: Present normal affect Wound Management: Method: suture Examination: Present clean and dry; Absent erythematous Comments: Pfannenstiel incision, Silver dressing present Urinary Catheter Management: Urethral: Cath placed during this visit: no Reason for continuing: surgical procedure OB - PN: Obj Data Labs Labs: Laboratory Results - last 24 hr 12/12/22 19:08 Hgb 10.0 L OB - PN: A/P Delivery Assessment and Plan (1) S/P section: Problem details: Stable Status: Acute Plan day: 2 Plan: routine care Comments: Anticipate discharge tomorrow.
[2022-12-13 09:45] VITALS: BP 111/71; PULSE 81; RESP 16; TEMP 36.6; O2SAT 96
--- NOTE | 2022-12-13 11:00 | PM.GSPN ---
Subjective Subjective Date Seen: 12/13/22 Interval history: Patient is doing well. She has some abdominal soreness that is worse with movement. She tolerated regular diet. She is passing gas and had a bowel movement yesterday. Exam Narrative: Exam Narrative: Abdomen is soft, not distended, she has discomfort to palpation in epigastrium and bilateral lower quadrants. No peritoneal signs. Const: Vital Signs, click to edit/add: Vital Signs - 24 hr 12/12/22 11:54 12/12/22 12:54 12/12/22 13:10 Temperature 97.9 F Pulse Rate [Pulse Oximeter] 80 Respiratory Rate 16 16 16 Blood Pressure [Le ft Arm] 122/77 Pulse Oximetry 96 Oxygen Delivery Me thod Room Air 12/12/22 13:54 12/12/22 14:54 12/12/22 15:30 Temperature 98.1 F Pulse Rate [Pulse Oximeter] 80 Respiratory Rate 16 16 15 Blood Pressure [Le ft Arm] 115/77 Pulse Oximetry 96 Oxygen Delivery Me thod Room Air 12/12/22 19:54 12/12/22 20:36 12/12/22 20:54 Temperature 98.3 F Pulse Rate [Pulse Oximeter] 80 Respiratory Rate 18 18 18 Blood Pressure [Le ft Arm] 115/73 Pulse Oximetry 96 Oxygen Delivery Me thod Room Air 12/13/22 03:04 12/13/22 09:45 Temperature 97.7 F 97.9 F Pulse Rate [Pulse Oximeter] 80 81 Respiratory Rate 16 16 Blood Pressure [Le ft Arm] 124/76 111/71 Pulse Oximetry 96 96 Oxygen Delivery Me thod Room Air Room Air Progress Note: A&P Assessment and plan (1) Meckel diverticulum: Problem details: s/p diverticulectomy during C section Status: Acute Plan 27-year-old female s/p with Meckel's diverticulectomy POD 2. I discussed with the patient intraoperative findings and Meckel's diverticulectomy. Patient is doing well. She is okay to discharge tomorrow as planned by tractor engine mechanic service. The signs of intra-abdominal infection such as increasing abdominal pain, nausea, vomiting, and not passing gas were all discussed with the patient. If she develops any of those, patient should seek medical attention.
[2022-12-13 15:30] VITALS: BP 119/77; PULSE 95; RESP 16; TEMP 36.7; O2SAT 95
[2022-12-13 23:21] VITALS: BP 108/68; PULSE 95; RESP 16; TEMP 36.8
[2022-12-14] MEDS: ACETAMINOPHEN 500 MG TABLET 1000 MG PO ×2 (00:58→08:21)
[2022-12-14] MEDS: IBUPROFEN 600 MG TABLET PO ×2 (04:08→10:34)
--- NOTE | 2022-12-14 07:59 | P.DS_ITS ---
DS: Providers Provider Date Seen: 12/14/22 Date of admission: 12/10/22 17:02 Primary care physician: Not a Local Provider Admitting Clinician: Kerry Smyth MD Attending Physician on discharge: Mony Calderon CNM DS: Diagnosis Discharge Diagnosis (1) care and examination immediately after delivery: Status: Acute (2) Lactating mother: Status: Acute (3) Meckel diverticulum: Status: Acute Problem details: s/p diverticulectomy during C section (4) S/P section: Status: Acute Problem details: Stable Exam Narrative: Exam Narrative: GENERAL APPEARANCE:? normal affect, alert, no distress MOOD:? appropriate CHEST:? clear to auscultation HEART:? regular rate and rhythm ABDOMEN:? soft, non-tender the uterine fundus is at Umbilicus, Midline and is appropriate for the stage of recovery. EXTREMITIES:? normal and trace edema Incision: Silver dressing in place; clean, dry, and intact Const: Vital Signs, click to edit/add: Vital Signs - 24 hr 12/13/22 09:45 12/13/22 15:30 12/13/22 23:21 Temperature 97.9 F 98.1 F 98.2 F Pulse Rate [Pulse Oximeter] 81 95 95 Respiratory Rate 16 16 16 Blood Pressure [Le ft Arm] 111/71 119/77 108/68 Pulse Oximetry 96 95 Oxygen Delivery Me thod Room Air Nasal Cannula OB - DS: Summary Hospital Course Hospital Course: The patient is a 27 year old G 1 P 1 at 40 0/7 weeks gestation that was admitted to the Center on 12/10/22 for elective induction of labor. She had a delivery complicated by meckel diverticulum, removed by general surgery. She delivered a viable male infant. The patient feels well. ?The pain is well controlled with current medications. ?She has no new complaints. ?She is breast feeding and reports things are going well. the patient has done well.? Vitals have been stable.? She has remained afebrile.? Has a good appetite, is tolerating a general diet. ?She is voiding without difficulty.? She is passing gas and has not had a bowel movement.? She is ambulating and denies any dizziness.? Has small amount of rubra lochia. She is undecided on prevention. Problems: none plan: Discharge home with baby. Follow up in 2 weeks and 6 weeks. , may see if needed Hgb 10.0. Peripartum Data delivery method: Primary C/S; Labored Procedures: Procedures Operation Date: 12/11/22 20:15 Actual Procedure Side Surgeon p Section and Meckel's Diverticulectomy Kerry Smyth MD complications: none Infant Gender: Male Infant Discharge Plan: Home Status at Discharge Functional status at discharge: independent ambulation Overall status at discharge: patient is progressing back to baseline Time Spent with Patient Time attestation: Total time spent providing and/or coordinating discharge services: Time spent: Less than 30 minutes Discharge Plan Discharge Disposition: Home, Self-Care Date of Admission: 12/10/22 17:02 Attending Provider on Discharge: Mony Calderon Primary Care Provider: Provider,Not a Local Condition: Stable Anticipated Discharge Date/Time: 12/14/22 12:00 Discharge Medications: New acetaminophen 500 mg Tablet 1,000 mg PO Q6H PRN (Reason: Pain) Qty: 0 0RF docusate sodium 100 mg Capsule 100 mg PO DAILY Qty: 90 0RF ibuprofen 600 mg Tablet 600 mg PO Q6H PRN (Reason: Pain) Qty: 60 0RF oxycodone 5 mg Tablet 5 - 10 mg PO Q4H PRN (Reason: Pain) Qty: 15 0RF Continued albuterol sulfate [Ventolin HFA] 90 mcg/actuation HFA aerosol inhaler 1 puff inhalation PRN Patient Comments: INHALE 1-2 PUFFS BY MOUTH EVERY 4 HOURS NEEDED FOR SHORTNESS OF BREATH / DYSPNEA OR WHEEZING DHA 200 mg capsule 200 mg PO DAILY loratadine [Claritin] 10 mg tablet 10 mg PO QDAY Discharge Orders: Discharge Order (Routine); Ordered 12/14/22 Ordered By: Mony Calderon Patient Education: OB Over the Counter Medication Information, OB /Breast Feeding Additional Instructions: Discharge instructions were reviewed with the patient including signs and symptoms of infection and home going medications Lifting Restrictions: 20 pounds for 6 weeks No not submerge incision under water X 2 weeks? Nothing vaginally for 6 weeks: no tampons or intercourse Do not drive while taking narcotic pain medication(s) Off Work or School for 8 weeks Silver Dressing to be removed at 7 days . 2-week visit: incision check, discuss infant feeding concerns, review control options and screen for anxiety/depression. 6-week visit for an annual exam. consultation services are available to all mothers and babies for the first year after delivery.? To make an appointment, please call [phone]. Activity Level: Activity as Tolerated Discharge Diet: Regular Follow Up Appointments: [facility] [Provider Group] Forms: [employer] [facility] Info Instructions
[2022-12-14] MEDS: DOCUSATE SODIUM 100 MG CAPSULE PO (08:21)
[2022-12-14] MEDS: ENOXAPARIN 40 MG/0.4 ML INJ SUBCUT (08:23)
[2022-12-14 08:27] VITALS: BP 128/84; PULSE 83; RESP 16; TEMP 37; O2SAT 96
[2022-12-14 10:35] VITALS: BP 128/84; PULSE 86; RESP 18; TEMP 36.8; O2SAT 96
== END 2022-12-14 11:58 | disposition home or self-care (01) | DRG 788 ==
PROVIDERS: Surgery; Admitting Provider Obstetrics & Gynecology; Visit Provider Obstetrics & Gynecology
PROC: 10D00Z1 Extraction of Products of Conception, Low, Open Approach (ICD-10-PCS; CPT 59514; principal; 2022-12-11 20:00)
PROC: 0DB80ZZ Excision of Small Intestine, Open Approach (ICD-10-PCS; CPT 49000; 2022-12-11 20:00)
DX: O99.824 Streptococcus B carrier state complicating childbirth (principal); O76 Abnormality in fetal heart rate and rhythm complicating labor and delivery; I95.9 Hypotension, unspecified; Q43.0 Meckel's diverticulum (displaced) (hypertrophic); O62.0 Primary inadequate contractions; Z3A.39 39 weeks gestation of pregnancy; Z37.0 Single live birth; G89.18 Other acute postprocedural pain
CPT/HCPCS: 01961; 01968; 36415; 59200; 64488; 76942; 82565; 82570; 84156; 84450; 84460; 84520; 85018; 85027; 85461; 86850; 86900; 86901; 88304; A9270; C1726; C9290; J0456; J0665; J1650; J1885; J2270; J2274; J2371; J2405; J2590; J2791; J2795; J3010; J3370; J7050; J7120; S0020

== ENCOUNTER 2022-12-16 21:25 | Emergency (ER) | payer OTHER, SELFPAY ==
[2022-12-16] VITALS (20 sets, daily range): BP systolic 116–134; BP diastolic 66–90; PULSE 61–80; RESP 20; TEMP 36.6; O2SAT 96–99; BMI 39.9
--- NOTE | 2022-12-16 21:58 | ED.GENADULT ---
HPI - General Adult General Chief complaint: Shortness of Breath/Dyspnea Stated complaint: 5 days shortness of breath Time Seen by Provider: 12/16/22 21:35 History of Present Illness HPI narrative: 5d Post . minor constant trouble breathing, states worse when layin down . shaky. states c section with part divertic removal. pt breast feeding/ pumping. 27-year-old here with complaint of some shortness of breath over the last couple of days. Some orthopnea. Not reporting exertional dyspnea or palpitations. Feels really anxious she admits. Sense of heat in her mid chest as the discomfort as well. This comes and goes. No fever. She has been trying to meditate admittedly anxious about what she is feeling. Five days . This was a . No unusual discharge though is still making clots. Did have some increased abdominal pain but really what it is is just above the left hip area and she thinks it was flared by a movement of her leg somehow. She did take 1 tablet of oxycodone a believe yesterday. Does not like the way they make her feel. Is breast-feeding. Has had symmetrical swelling of her legs without increased pain. Not unusual since . Related Data Home Medications Medication Instructions Recorded Confirmed albuterol sulfate 90 mcg/actuation 1 puff inhalation PRN 05/26/22 12/10/22 aerosol inhaler (Ventolin HFA) docosahexaenoic acid 200 mg 200 mg PO DAILY 07/27/22 12/10/22 capsule ( DHA) loratadine 10 mg tablet (Claritin) 10 mg PO QDAY 08/20/22 12/10/22 Previous Rx's Medication Instructions Recorded acetaminophen 500 mg tablet 1,000 mg (2 x 500 mg) PO Q6H PRN 12/14/22 Pain #0 tabs docusate sodium 100 mg capsule 100 mg PO DAILY #90 caps 12/14/22 ibuprofen 600 mg tablet 600 mg PO Q6H PRN Pain #60 tabs 12/14/22 oxycodone 5 mg tablet 5 - 10 mg (1 - 2 x 5 mg) PO Q4H 12/14/22 PRN Pain #15 tabs Allergies Allergy/AdvReac Type Severity Reaction Status Date / Time Penicillins Allergy Intermediate itching Verified 12/11/22 23:08 and swelling sulfamethoxazole Allergy Mild Unknown Verified 12/11/22 23:08 [From Bactrim] trimethoprim [From Bactrim] Allergy Mild Unknown Verified 12/11/22 23:08 Review of Systems Status of ROS: Reports: 6 or more systems reviewed and unremarkable except as noted in History and below PFSH PFSH Family History Other Anxiety Cerebrovascular disease Coronary artery disease Depression Diabetes High blood pressure Social History What is your current living situation?: I presently have a place to live Problems where you live: no known problems In the past 12 months, utilities in danger of being shut off: no In the past 12 mos, have been you worried that your food would run out before you had money to buy more?: never true In the past 12 mos, the food you bought just didn't last and you didn't have money to buy more?: never true Smoking Status: Never smoker Do you use any of these nicotine containing products: None Second hand tobacco smoke exposure: No How often do you have a drink containing alcohol: never How often do you have six or more drinks on one occasion: Never AUDIT-C Alcohol total score: 0 Non-prescribed substance use: denies use How often does anyone, including family, friends and others, physically hurt you: never How often does anyone, including family, friends and others, insult or talk down to you: never How often does anyone, including family, friends and others, threaten you with harm: never How often does anyone, including family, friends and others, scream or curse at you: never Little interest or pleasure in doing things: not at all Feeling down, depressed, or hopeless: several days service: No Exam Narrative: Exam Narrative: Pleasant. Mildly anxious. Brow was furrowed in little discomfort. Subtly labored at times in her breathing. Neck is supple without supraclavicular crepitus. Lungs appear to be clear. Heart in a regular rate and rhythm. No murmur rub or gallop is identified. Auscultated in semi recumbent and sitting forward. Abdomen is clearly recently just gravid. She is moving all extremities without difficulty. There is 1+ pitting edema throughout the lower extremities bilaterally. Oropharynx is unremarkable. Const: Vital Signs, click to edit/add: Vital Signs - 24 hr 12/16/22 21:39 12/16/22 21:45 12/16/22 21:47 Temperature 97.9 F Pulse Rate 62 68 Pulse Rate [Left P ulse Oximeter] 70 Respiratory Rate 20 Blood Pressure 116/67 Blood Pressure [Ri ght Upper Arm] 127/72 Pulse Oximetry 98 97 97 Oxygen Delivery Me thod Room Air 12/16/22 22:00 12/16/22 22:01 12/16/22 22:07 Temperature Pulse Rate 70 80 Pulse Rate [Left P ulse Oximeter] Respiratory Rate Blood Pressure 120/66 Blood Pressure [Ri ght Upper Arm] Pulse Oximetry 97 97 98 Oxygen Delivery Me thod 12/16/22 22:15 12/16/22 22:17 12/16/22 22:30 Temperature Pulse Rate 72 68 75 Pulse Rate [Left P ulse Oximeter] Respiratory Rate Blood Pressure 119/74 Blood Pressure [Ri ght Upper Arm] Pulse Oximetry 98 98 98 Oxygen Delivery Me thod 12/16/22 22:45 12/16/22 22:47 12/16/22 23:00 Temperature Pulse Rate 77 65 65 Pulse Rate [Left P ulse Oximeter] Respiratory Rate Blood Pressure 125/76 Blood Pressure [Ri ght Upper Arm] Pulse Oximetry 98 99 99 Oxygen Delivery Me thod 12/16/22 23:01 12/16/22 23:02 12/16/22 23:15 Temperature Pulse Rate 65 65 61 Pulse Rate [Left P ulse Oximeter] Respiratory Rate Blood Pressure 133/79 Blood Pressure [Ri ght Upper Arm] Pulse Oximetry 96 97 98 Oxygen Delivery Me thod 12/16/22 23:17 12/16/22 23:30 12/16/22 23:31 Temperature Pulse Rate 69 67 66 Pulse Rate [Left P ulse Oximeter] Respiratory Rate Blood Pressure 134/84 134/90 H Blood Pressure [Ri ght Upper Arm] Pulse Oximetry 98 97 98 Oxygen Delivery Me thod 12/16/22 23:45 12/16/22 23:47 12/17/22 00:00 Temperature Pulse Rate 75 69 65 Pulse Rate [Left P ulse Oximeter] Respiratory Rate Blood Pressure 128/74 Blood Pressure [Ri ght Upper Arm] Pulse Oximetry 97 98 98 Oxygen Delivery Me thod 12/17/22 00:01 12/17/22 00:01 12/17/22 00:01 Temperature Pulse Rate 72 72 72 Pulse Rate [Left P ulse Oximeter] Respiratory Rate Blood Pressure 131/82 131/82 131/82 Blood Pressure [Ri ght Upper Arm] Pulse Oximetry 98 98 98 Oxygen Delivery Me thod 12/17/22 00:01 12/17/22 00:15 12/17/22 00:19 Temperature Pulse Rate 72 71 71 Pulse Rate [Left P ulse Oximeter] Respiratory Rate Blood Pressure 131/82 Blood Pressure [Ri ght Upper Arm] Pulse Oximetry 98 98 97 Oxygen Delivery Me thod 12/17/22 00:30 12/17/22 00:34 12/17/22 00:45 Temperature Pulse Rate 68 67 67 Pulse Rate [Left P ulse Oximeter] Respiratory Rate Blood Pressure Blood Pressure [Ri ght Upper Arm] Pulse Oximetry 97 97 95 Oxygen Delivery Me thod 12/17/22 00:49 Temperature Pulse Rate 74 Pulse Rate [Left P ulse Oximeter] Respiratory Rate Blood Pressure Blood Pressure [Ri ght Upper Arm] Pulse Oximetry 96 Oxygen Delivery Me thod Documenting provider has reviewed patient's vital signs: yes Course Vital Signs Vital signs: Initial Vital Signs Temperature 97.9 F 12/16/22 21:39 Temperature Source Temporal Artery Scan 12/16/22 21:39 Pulse Rate 70 12/16/22 21:39 Respiratory Rate 20 12/16/22 21:39 Blood Pressure 127/72 12/16/22 21:39 Blood Pressure Mean 90 12/16/22 21:39 Blood Pressure Position Sitting 12/16/22 21:39 Pulse Oximetry 98 12/16/22 21:39 Oxygen Delivery Method Room Air 12/16/22 21:39 Vital Signs Temperature 97.9 F 12/16/22 21:39 Pulse Rate 70 12/16/22 21:39 Respiratory Rate 20 12/16/22 21:39 Blood Pressure 127/72 12/16/22 21:39 Pulse Oximetry 98 12/16/22 21:39 Oxygen Delivery Method Room Air 12/16/22 21:39 Temperature 97.9 F 12/16/22 21:39 Pulse Rate 74 12/17/22 00:49 Respiratory Rate 20 12/16/22 21:39 Blood Pressure 131/82 12/17/22 00:01 Pulse Oximetry 96 12/17/22 00:49 Oxygen Delivery Method Room Air 12/16/22 21:39 Medical Decision Making MDM Narrative Medical decision making narrative: I think we can both agree that anxiety is amplifying potentially some of her symptoms. I doubt cardiovascular disease. Will evaluate though for pneumothorax or pneumonia. Possibly pulmonary embolus this would be harder to screen for in the setting of this recent surgery. Is clearly clotting already per her description. Low or negative D-dimer might be reassuring. Does not have increased abdominal pain to suggest infection. Overall better today. Pleuritis though not pleuritic. Possible pericarditis. Maybe heart failure. Arrhythmia/dysrhythmia. Pulmonary edema. IVs established. Given L normal saline. One dose of lorazepam Chest x-ray while a portable I thought had some mild cardiomegaly on my read however radiology does not appear to have been impressed. No effusion. On reassessment does seem more relaxed and reports feeling better without the orthopnea that she had been complaining of before. Mildly elevated white count and mildly elevated D-dimer think is consistent with recent surgery//clotting. Has drifted down 1 g in hemoglobin over the last 6 days. Will need recheck. We did discuss scanning for pulmonary embolus though as noted improved, without pleuritic pain. Vitals have been stable. She would prefer to go home for watchful waiting. I think that is reasonable. See patient discharge plan Lab Data Lab results reviewed: Yes I reviewed the patient's lab results Labs: Lab Results 12/16/22 12/16/22 Range/Units 22:08 22:30 WBC 13.51 H (4.50-11.00) K/uL RBC 3.03 L (4.00-5.20) m/uL Hgb 8.9 L (12.0-16.0) gm/dL Hct 26.8 L (33.0-51.0) % MCV 88 (80-100) fL MCH 29 (26-34) pg MCHC 33 (32-36) gm/dL RDW Coeff of Joanne 13.8 (11.5-15.5) % Plt Count 313 (140-440) K/uL Neut % (Auto) 76.3 H (42.0-72.0) % Lymph % (Auto) 14.6 L (20-44) % [place] % (Auto) 6.2 (0.0-11.0) % Eos % (Auto) 1.6 (0.0-7.0) % Baso % (Auto) 0.3 (0.0-3.0) % Neut # (Auto) 10.30 H (1.7-7.0) K/uL Lymph # (Auto) 2.00 (0.90-2.90) K/uL [place] # (Auto) 0.80 (0.00-0.90) K/UL Eos # (Auto) 0.20 (0.00-0.50) K/uL Baso # (Auto) 0.00 (0.00-0.30) K/uL Abs Immat Gran (auto) 0.10 (0.00-0.30) K/uL Imm/Tot Granulo (auto) 1.0 % D-Dimer Quant (PE/DVT) 2.44 H (0.00-0.50) ug/ml Sodium 137 (135-149) mmol/L Potassium 4.1 (3.6-5.1) mmol/L Chloride 108 (96-114) mmol/L Carbon Dioxide 22 (20-32) mmol/L Anion Gap 7 (7-15) mEq/L BUN 12 (5-24) mg/dL Creatinine 0.6 (0.5-1.5) mg/dL Estimated Creat Clear 126.73 Estimated GFR 126 ml/min Glucose 92 (60-115) mg/dL Calcium 9.1 (8.4-10.6) mg/dL Total Bilirubin 0.3 (0.1-1.5) mg/dL Direct Bilirubin 0.1 (0.0-0.5) mg/dL AST 28 (12-35) U/L ALT 27 (4-35) U/L Alkaline Phosphatase 118 (40-150) U/L Troponin I < 0.01 L (0.01-0.04) ng/mL C-Reactive Protein 8.4 H (0.5-1.0) mg/dL NT-Pro-B Natriuret Pep 165 pg/mL Total Protein 6.4 (6.0-8.3) g/dL Albumin 3.3 (3.3-5.0) g/dL Lipase 154 (23-300) U/L POC Troponin I 0.00 L (0.01-0.04) ng/ml Discharge Plan Discharge Clinical Impression: Anxiety, Dyspnea, Post-op pain Patient Disposition: Home w/ Parent or Adult Condition: Improved Additional Instructions: Be sure to stay well-hydrated. Return for persistent and increasing shortness of breath, pleuritic chest pain, associated fever, worsening lightheadedness. If you are feeling particularly stressed and your efforts at meditation are not helping you relax, lorazepam from [facility]. Prescriptions: No Action albuterol sulfate [Ventolin HFA] 90 mcg/actuation HFA aerosol inhaler 1 puff inhalation PRN Patient Comments: INHALE 1-2 PUFFS BY MOUTH EVERY 4 HOURS NEEDED FOR SHORTNESS OF BREATH / DYSPNEA OR WHEEZING DHA 200 mg capsule 200 mg PO DAILY loratadine [Claritin] 10 mg tablet 10 mg PO QDAY acetaminophen 500 mg Tablet 1,000 mg PO Q6H PRN (Reason: Pain) Qty: 0 0RF docusate sodium 100 mg Capsule 100 mg PO DAILY Qty: 90 0RF ibuprofen 600 mg Tablet 600 mg PO Q6H PRN (Reason: Pain) Qty: 60 0RF oxycodone 5 mg Tablet 5 - 10 mg PO Q4H PRN (Reason: Pain) Qty: 15 0RF Follow Up/Referrals: Provider,Not a Local [Primary Care Provider] - Stand Alone Forms: [employer] Info Instructions
--- NOTE | 2022-12-16 22:08 | CRLHL7_ITS ---
For Patients: As a result of the Cures Act, medical imaging exams and procedure reports are released immediately into your electronic medical record. You may view this report before your referring provider. If you have questions, please contact your health care provider. INDICATION: 5 days ago, shortness of breath TECHNIQUE: Chest 1 view. Permanently recorded images are archived. COMPARISON: None. FINDINGS: Cardiovascular and mediastinum: Heart size and vasculature are normal in caliber and appearance. Lungs and pleural spaces: The lungs are clear. No pleural effusion or pneumothorax. Bones and soft tissues: Unremarkable for age. IMPRESSION: No evidence of an acute pulmonary process. Dictated by Prateek Del Rosario MD @ 12/16/2022 11:37:00 PM (Electronically Signed)
[2022-12-16] MEDS: LORazepam 2 MG/ML inj 0.5 MG IVP (22:31)
[2022-12-16] MEDS: 0.9 % SODIUM CHLORIDE 1000 ml 1,000 ML IV (22:31)
[2022-12-16 22:44] LABS: Basophils Percent Auto 0.3 % (0.0-3.0); Eosinophils Percent Auto 1.6 % (0.0-7.0); Hematocrit 26.8 % (33.0-51.0); Hemoglobin* 8.9 gm/dL (12.0-16.0); Lymphocytes Percent Auto 14.6 % (20-44); Mean Corpuscular HGB Conc 33 gm/dL (32-36); Mean Corpuscular Hemoglobin 29 pg (26-34); Mean Corpuscular Volume 88 fL (80-100); Monocytes Percent Auto 6.2 % (0.0-11.0); Neutrophils Percent Auto 76.3 % (42.0-72.0); Platelet Count* 313 K/uL (140-440); RDW Coefficient of Variation % 13.8 % (11.5-15.5); Red Blood Count 3.03 m/uL (4.00-5.20); Slide Review Reflex No; White Blood Count* 13.51 K/uL (4.50-11.00)
[2022-12-16 22:53] LABS: Albumin* 3.3 g/dL (3.3-5.0); Chloride* 108 mmol/L (96-114)
[2022-12-16 22:54] LABS: Potassium* 4.1 mmol/L (3.6-5.1); Sodium* 137 mmol/L (135-149)
[2022-12-16 22:56] LABS: Creatinine* 0.6 mg/dL (0.5-1.5); Est. Creatinine Clearance* 126.73; Estimated Glomerular Filt Rate 126 ml/min
[2022-12-16 22:57] LABS: Alanine Aminotransferase* 27 U/L (4-35); Alkaline Phosphatase* 118 U/L (40-150); Anion Gap 7 mEq/L (7-15); Aspartate Amino Transferase* 28 U/L (12-35); Bilirubin Direct* 0.1 mg/dL (0.0-0.5); Bilirubin Total* 0.3 mg/dL (0.1-1.5); Blood Urea Nitrogen* 12 mg/dL (5-24); Calcium* 9.1 mg/dL (8.4-10.6); Carbon Dioxide* 22 mmol/L (20-32); Glucose* 92 mg/dL (60-115); Lipase* 154 U/L (23-300); Total Protein* 6.4 g/dL (6.0-8.3)
[2022-12-16 22:58] LABS: D Dimer Quantitative* 2.44 ug/ml (0.00-0.50)
[2022-12-16 23:00] LABS: C Reactive Protein* 8.4 mg/dL (0.5-1.0)
[2022-12-16 23:09] LABS: NT Pro B Type NatriureticPept* 165 pg/mL; Troponin I* < 0.01 ng/mL (0.01-0.04)
[2022-12-17] VITALS (8 sets, daily range): BP systolic 131; BP diastolic 82; PULSE 65–74; O2SAT 95–98
--- NOTE | 2022-12-17 00:59 | ED.NURSE ---
Addendum entered by Fannie Franco RN 12/17/22 01:01: Agree with 14 wasted pills of pt's oxycodone prescription. Original Note: wasted 14 pills of patients oxycodone per pt request. Sydnie Gleason RN witnessed.
== END 2022-12-17 00:55 | disposition home or self-care (01) ==
PROVIDERS: Emergency Provider Family Medicine
DX: F41.9 Anxiety disorder, unspecified (principal); R06.00 Dyspnea, unspecified; G89.18 Other acute postprocedural pain
CPT/HCPCS: 36415; 71045; 80048; 80076; 83690; 83880; 84484; 85025; 85379; 86140; 94761; 96361; 96374; 99284; J2060; J7030

== ENCOUNTER 2023-02-12 16:14 | Outpatient (CLI) | payer OTHER, SELFPAY | END 2023-02-12 16:15 | disposition home or self-care (01) | PROVIDERS: Visit Provider Family Medicine | DX: R10.13 Epigastric pain (principal) | CPT/HCPCS: 83690 ==

== ENCOUNTER 2023-02-16 13:00 | Outpatient (CLI) | payer OTHER, SELFPAY | END 2023-02-16 13:01 | disposition home or self-care (01) | LOC: NFLDREF 02-19 08:12 | PROVIDERS: Visit Provider Family Medicine | DX: R10.13 Epigastric pain (principal) | CPT/HCPCS: 87338 ==

== ENCOUNTER 2023-02-18 13:44 | Outpatient (CLI) | payer OTHER, SELFPAY ==
--- NOTE | 2023-02-18 14:00 | CRLHL7_ITS ---
For Patients: As a result of the Century Cures Act, medical imaging exams and procedure reports are released immediately into your electronic medical record. You may view this report before your referring provider. If you have questions, please contact your health care provider. INDICATION: Epigastric pain COMPARISON: none TECHNIQUE: Real time hamilton scale imaging and color Doppler analysis was performed of the right upper quadrant. FINDINGS: The patient`s liver is of normal size and has mildly increased echogenicity. There is a normal appearance of the hepatic IVC and proximal abdominal aorta. There is no evidence of ascites. The gallbladder is of normal size and there is are layering echogenic and shadowing gallstones. The gallbladder wall measures 2.1 mm in thickness. The common bile duct is of normal size and measures 2.8 mm in diameter at the level of the barbara hepatis. The pancreas appears normal. There is no evidence of a stone or hydronephrosis within the right kidney. The right kidney measures 12.2 cm in length. IMPRESSION: Cholelithiasis. Mild hepatic steatosis. Dictated by Malcolm Blackwell MD @ 02/19/2023 12:21:32 PM (Electronically Signed)
== END 2023-02-18 13:45 | disposition home or self-care (01) ==
LOC: US 13:45
PROVIDERS: PCP Family Medicine; Visit Provider Family Medicine
DX: R10.13 Epigastric pain (principal); K80.20 Calculus of gallbladder without cholecystitis without obstruction; K76.0 Fatty (change of) liver, not elsewhere classified
CPT/HCPCS: 76705

== ENCOUNTER 2023-04-02 06:08 | Day surgery (SDC) | payer OTHER, SELFPAY ==
[2023-04-01] MEDS: LACTATED RINGERS 1000 ML 1,000 ML 100 ML IV (06:15)
[2023-04-01 06:27] VITALS: BMI 36.1
[2023-04-01 06:37] VITALS: BP 121/67; PULSE 61; RESP 16; TEMP 36.7; O2SAT 96
[2023-04-01 06:38] LABS: Ur HCG Qualitative* Negative (Negative)
[2023-04-01] MEDS: SODIUM CHLORIDE 0.9 % (FLUSH) 10 ML SYRINGE IVF (06:46)
[2023-04-01] MEDS: CLINDAMYCIN 900 MG/50 ML-D5W IVPB (07:25)
[2023-04-02] VITALS (11 sets, daily range): BP systolic 111–129; BP diastolic 64–88; PULSE 61–87; RESP 11–18; TEMP 36.4–36.9; O2SAT 96–97
--- NOTE | 2023-04-02 07:22 | P.GSHP_ITS ---
History of Present Illness History of Present Illness Date Seen: 04/02/23 Chief complaint: Surgery Narrative: Cinda Mackey is a 27 year old female who presents today for cholecystectomy for biliary colic. She has no updates or health history. No recent illness. PFSH [facility] Medical History (Updated 02/24/23 @ 10:20 by Liya Larry MD) Meckel diverticulum ?Q43.0 - Meckel's diverticulum (displaced) (hypertrophic) (ICD-10) PCOS (polycystic ovarian syndrome) ?E28.2 - Polycystic ovarian syndrome (ICD-10) Surgical History (Updated 02/24/23 @ 10:00 by Liya Larry MD) S/P section ?Z98.891 - History of uterine scar from previous surgery (ICD-10) Family History (Updated 02/24/23 @ 10:00 by Liya Larry MD) Other Anxiety Cerebrovascular disease Coronary artery disease Depression Diabetes High blood pressure Social History (Updated 02/24/23 @ 10:00 by Liya Larry MD) Narrative: Currently . Non-smoker, occasional alcohol. Works as a state highway police officer. What is your current living situation?: I presently have a place to live Problems where you live: no known problems In the past 12 months, utilities in danger of being shut off: no In past 12 months, lack of transportation kept you from medical appts, meetings, work, or getting things needed for daily living: no In the past 12 mos, have been you worried that your food would run out before you had money to buy more?: never true In the past 12 mos, the food you bought just didn't last and you didn't have money to buy more?: never true Smoking Status: Never smoker Do you use any of these nicotine containing products: None Second hand tobacco smoke exposure: No How often do you have a drink containing alcohol: monthly or less How often do you have six or more drinks on one occasion: Never AUDIT-C Alcohol total score: 1 Non-prescribed substance use: denies use Caffeine: Yes How often does anyone, including family, friends and others, physically hurt you : never How often does anyone, including family, friends and others, insult or talk down to you: never How often does anyone, including family, friends and others, threaten you with harm: never How often does anyone, including family, friends and others, scream or curse at you: never Little interest or pleasure in doing things: not at all Feeling down, depressed, or hopeless: not at all service: No Meds Home Medications and Allergies Home Medications Medication Instructions Recorded Confirmed Type albuterol sulfate 90 mcg/actuation 1 puff inhalation PRN 05/26/22 04/01/23 History aerosol inhaler (Ventolin HFA) docosahexaenoic acid 200 mg 200 mg PO DAILY 07/27/22 04/01/23 History capsule ( DHA) docusate sodium 100 mg capsule 100 mg PO DAILY PRN 02/12/23 04/01/23 History loratadine 10 mg tablet (Claritin) 10 mg PO QDAY PRN 02/12/23 04/01/23 History Allergies Allergy/AdvReac Type Severity Reaction Status Date / Time Penicillins Allergy Intermediate itching Verified 04/01/23 06:18 and swelling sulfamethoxazole Allergy Mild Unknown Verified 04/01/23 06:18 [From Bactrim] trimethoprim [From Bactrim] Allergy Mild Unknown Verified 04/01/23 06:18 Exam Narrative: Exam Narrative: General: No acute distress CV: Regular rate and rhythm respiratory: Clear to auscultation bilaterally Const: Vital Signs, click to edit/add: Vital Signs - 24 hr 04/02/23 06:29 Temperature 97.6 F Pulse Rate 61 Respiratory Rate 16 Blood Pressure 111/67 Pulse Oximetry 97 Oxygen Delivery Me thod Room Air Results Results Labs: no updated results. Assessment and Plan Assessment and plan (1) Cholelithiasis: Status: Acute Plan Cinda is a 27-year-old female with cholelithiasis. We are planning on cholecystectomy today. Risks and benefits discussed. She is cleared for surgery.
[2023-04-02] MEDS: LACTATED RINGERS 1000 ML IV (07:24)
[2023-04-02] MEDS: BUPIVACAINE 0.25% 30 ML INJECTION (08:10)
--- NOTE | 2023-04-02 08:19 | P.GSOP_ITS ---
Operative Note Date of procedure: 04/02/23 Pre-op diagnosis: Biliary colic Post-op diagnosis: Same Type of Procedure: Laparoscopic cholecystectomy Indications: The patient is a 27-year-old female who developed several episodes of severe abdominal pain. Workup revealed cholelithiasis without evidence of biliary obstruction. After discussion of options, she was offered cholecystectomy and she agreed to proceed. Procedure Description: After discussing the risks and benefits of the procedure, the patient signed informed consent.? The operative site was marked and the patient was brought to the operating room and placed on the operating table in supine position.? Care was taken to pad the patient's pressure points.?? The patient was then intubated by anesthesia.?? The operative site was then prepped and draped in the usual sterile fashion.? A time-out was then performed. Entrance to the abdomen was gained via a 5 mm Visiport in the left upper quadrant. The abdomen was insufflated and briefly surveyed for signs of injury. There was none. A 10 mm umbilical port was placed as well as 2 working ports along the right costal margin, all under direct vision. The patient was then placed in reverse Trendelenburg position with the right side up. The gallbladder fundus was grasped and retracted cephalad. The infundibulum was grasped. A combination of hook cautery and blunt dissection was used to carefully dissect out the cystic duct and artery until they could clearly be seen entering the gallbladder without any intervening structures. The gallbladder was dissected off the cystic plate to achieve the critical view. Once this was achieved the cystic duct and artery were each clipped with 2 clips proximally and 1 clip distally and transected with the scissors. The gallbladder was then taken off of the liver bed. A few small vessels that were going directly into the gallbl adder from the liver bed were clipped to avoid bleeding. The gallbladder was then removed from the abdomen using an Endo-Catch bag. The gallbladder was palpated and there were small stones within. The gallbladder bed was surveyed for hemostasis which appeared adequate. The umbilical port fascia was closed with 0 Vicryl using a Ricky-Madhavi. The remaining ports were then removed and the abdomen desufflated. The skin was closed with absorbable subcuticular suture. Sterile dressings were then applied. Instrument sponge and needle counts were correct at the end of the case. The patient was then woken and transferred to the PACU in stable condition. ? The patient tolerated the procedure well. Findings: Cholelithiasis. Anesthesia: GETA Surgeon: Liya Larry MD Estimated blood loss (mL): 5 Specimen: Gallbladder Condition: stable Disposition: PACU
[2023-04-02] MEDS: LACTATED RINGERS 1000 ML 1,000 ML 30 ML IV (08:20)
--- NOTE | 2023-04-02 08:44 | W.ANESCHARGE ---
Anesthesia Charges Start Date/Time Anesthesia Start Date: 04/02/23 Anesthesia Start Time: 07:17 Stop Date/Time Anesthesia Stop Date: 04/02/23 Anesthesia Stop Time: 08:29
== END 2023-04-02 09:45 | disposition home or self-care (01) ==
PROVIDERS: Anesthesiology; PCP Family Medicine; Visit Provider Surgery
PROC: 0FT44ZZ Resection of Gallbladder, Percutaneous Endoscopic Approach (ICD-10-PCS; CPT 47562; principal; 2023-04-02 07:30)
DX: K80.10 Calculus of gallbladder with chronic cholecystitis without obstruction (principal)
CPT/HCPCS: 47562; 00790; 81025; 88304; J0330; J0665; J1100; J1885; J2250; J2405; J2704; J3010; J3490; J7120; S0077

== ENCOUNTER 2023-07-19 15:21 | Outpatient (CLI) | payer OTHER, SELFPAY ==
--- NOTE | 2023-07-19 15:00 | US_ITS ---
Patient: MIRTHA ROBB Facility:?[facility] Patient ID:?[id number] Site Patient ID:?[id number]. Site :?[id number] Study:?US-Pelvis PELVIS TV-07/19/2023 9:57:55 AM Ordering Physician:ROBI COKER Final Report: INDICATION: History of ovarian cyst. TECHNIQUE: Transvaginal scanning was performed to optimally evaluate the endometrium and adnexa. Ovarian blood flow was evaluated with color-flow and pulsed Doppler. COMPARISON: None. FINDINGS: The uterus is normal in size and shape. The uterus measures 7.4 x 3.1 x 4.8 cm. No myometrial mass is evident. The endometrial stripe is normal in thickness at 7 mm. The ovaries are normal in size and contain a number of follicles. The right ovary measures 4.0 x 2.3 x 2.0 cm and left 3.5 x 2.4 x 1.8 cm. Ovarian blood flow is demonstrated with color-flow and pulsed Doppler. No adnexal mass is evident. No free fluid is demonstrated. IMPRESSION: Negative transvaginal pelvic ultrasound. Dictated by Remigio Murillo MD @ 07/22/2023 11:17:34 AM Signed by:?Remigio Murillo MD @07/22/2023 11:17:34 AM (Electronic Signature)
== END 2023-07-19 15:22 | disposition home or self-care (01) ==
LOC: US 15:22
PROVIDERS: PCP Family Medicine; Visit Provider Physician Assistant
DX: N83.209 Unspecified ovarian cyst, unspecified side (principal)
CPT/HCPCS: 76830

== ENCOUNTER 2023-12-26 15:58 | Emergency (ER) | payer OTHER, SELFPAY ==
[2023-12-26 16:01] VITALS: BP 134/83; PULSE 65; RESP 18; TEMP 36.7; O2SAT 98; BMI 36.6
--- NOTE | 2023-12-26 16:04 | ED_ITS ---
HPI - General Adult General Chief complaint: Extremity Pain/Injury, Upper Stated complaint: L arm injury Time Seen by Provider: 12/26/23 15:58 History of Present Illness HPI narrative: slipped on stairs injurying left arm 28-year-old woman presenting to the emergency department with concern of left arm injury. Apparently has slipped, caught her heel on stairs went down striking particularly her left arm. Does have some wrist pain and especially mid forearm pain on the left. No noted head injury or neck or back pain. No abdominal pain. No difficulty breathing. No leg injury noted. Related Data Home Medications ?Medication ?Instructions ?Recorded ?Confirmed albuterol sulfate 90 mcg/actuation 1 puff inhalation PRN 05/26/22 08/24/23 aerosol inhaler (Ventolin HFA) docosahexaenoic acid 200 mg 200 mg PO DAILY 07/27/22 08/24/23 capsule ( DHA) loratadine 10 mg tablet (Claritin) 10 mg PO QDAY PRN 02/12/23 12/26/23 Previous Rx's ?Medication ?Instructions ?Recorded acetaminophen 500 mg tablet 1,000 mg (2 x 500 mg) PO Q6H PRN 12/14/22 Pain #0 tabs escitalopram oxalate 10 mg tablet 10 mg PO QDAY #90 tabs 08/24/23 (Lexapro) Allergies Allergy/AdvReac Type Severity Reaction Status Date / Time Penicillins Allergy Intermediate itching Verified 08/24/23 13:09 and swelling sulfamethoxazole Allergy Mild Unknown Verified 08/24/23 13:09 [From Bactrim] trimethoprim [From Bactrim] Allergy Mild Unknown Verified 08/24/23 13:09 Review of Systems Status of ROS: Reports: 6 or more systems reviewed and unremarkable except as noted in History and below [facility] Medical History Meckel diverticulum ?Q43.0 - Meckel's diverticulum (displaced) (hypertrophic) (ICD-10) PCOS (polycystic ovarian syndrome) ?E28.2 - Polycystic ovarian syndrome (ICD-10) Surgical History S/P laparoscopic cholecystectomy ?Z90.49 - Acquired absence of other specified parts of digestive tract (ICD- 10) S/P section ?Z98.891 - History of uterine scar from previous surgery (ICD-10) Family History Other Anxiety Cerebrovascular disease Coronary artery disease Depression Diabetes High blood pressure Social History Narrative: Currently . Non-smoker, occasional alcohol. Works as a booking police officer. What is your current living situation?: I presently have a place to live Problems where you live: no known problems In the past 12 months, utilities in danger of being shut off: no In past 12 months, lack of transportation kept you from medical appts, meetings, work, or getting things needed for daily living: no In the past 12 mos, have been you worried that your food would run out before you had money to buy more?: never true In the past 12 mos, the food you bought just didn't last and you didn't have money to buy more?: never true Smoking Status: Never smoker Do you use any of these nicotine containing products: None Second hand tobacco smoke exposure: No How often do you have a drink containing alcohol: monthly or less How often do you have six or more drinks on one occasion: Never AUDIT-C Alcohol total score: 1 Non-prescribed substance use: denies use Caffeine: Yes How often does anyone, including family, friends and others, physically hurt you : never How often does anyone, including family, friends and others, insult or talk down to you: never How often does anyone, including family, friends and others, threaten you with harm: never How often does anyone, including family, friends and others, scream or curse at you: never Little interest or pleasure in doing things: not at all Feeling down, depressed, or hopeless: several days service: No Exam Narrative: Exam Narrative: Pleasant. NAD. Breathing easily. Seems little uncomfortable. Rotating the forearm is sore but not markedly so. Opens and closes hand easily. Is sore to palpation of the mid dorsal wrist but not directly over the radial or ulna distally. No snuffbox tenderness. Swelling in the mid distal ulna quite tender here. Not significant pain with stressing the bone otherwise. No pain at the elbow. Neck and back nontender. Const: Vital Signs, click to edit/add: Vital Signs - 24 hr 12/26/23 16:01 Temperature 98.1 F Pulse Rate [Right Pulse Oximeter] 65 Respiratory Rate 18 Blood Pressure [Ri ght Upper Arm] 134/83 Pulse Oximetry 98 Oxygen Delivery Me thod Room Air Documenting provider has reviewed patient's vital signs: yes Course Vital Signs Vital signs: Initial Vital Signs Temperature 98.1 F 12/26/23 16:01 Temperature Source Temporal Artery Scan 12/26/23 16:01 Pulse Rate 65 12/26/23 16:01 Respiratory Rate 18 12/26/23 16:01 Blood Pressure 134/83 12/26/23 16:01 Blood Pressure Mean 100 12/26/23 16:01 Blood Pressure Position Sitting 12/26/23 16:01 Pulse Oximetry 98 12/26/23 16:01 Oxygen Delivery Method Room Air 12/26/23 16:01 Vital Signs Temperature 98.1 F 12/26/23 16:01 Pulse Rate 65 12/26/23 16:01 Respiratory Rate 18 12/26/23 16:01 Blood Pressure 134/83 12/26/23 16:01 Pulse Oximetry 98 12/26/23 16:01 Oxygen Delivery Method Room Air 12/26/23 16:01 Temperature 98.1 F 12/26/23 16:01 Pulse Rate 65 12/26/23 16:01 Respiratory Rate 18 12/26/23 16:01 Blood Pressure 134/83 12/26/23 16:01 Pulse Oximetry 98 12/26/23 16:01 Oxygen Delivery Method Room Air 12/26/23 16:01 Medications Administered Medications: Discontinued Medications Generic Name Dose Route Start Last Admin Trade Name Mario PRN Reason Stop Dose Admin Ibuprofen 600 mg 12/26/23 16:12 12/26/23 16:20 Ibuprofen 200 Mg Tablet PO 12/26/23 16:13 600 mg ONCE ONE Administration Medical Decision Making MDM Narrative Medical decision making narrative: Given the degree of impact that has taken here I do not think it is unreasonable to do some imaging of his left forearm. Does not appear to have sustained significant injury elsewhere. I would suspect more of ?bone bruise? and adjacent hematoma. Fracture is certainly possible. Ordered for ibuprofen. By my read X-ray of the left forearm appears negative for bony injury. There is soft tissue swelling in the area of injury on exam. See patient discharge plan for further discussion Medical Records Medical records reviewed: Yes I reviewed the patient's medical records Discharge Plan Discharge Clinical Impression: Left wrist sprain, Hematoma Patient Disposition: Home w/ Parent or Adult Condition: Stable Additional Instructions: Wear the wrist brace as needed for comfort over the next week or 2. If not improved in 7-10 days would follow up for re-evaluation. Can take ibuprofen or acetaminophen for discomfort. I would ice your forearm and the wrist a couple of times daily over the next few days. Forearm I think would feel better with some Paul wrap compression on there too. Prescriptions: No Action albuterol sulfate [Ventolin HFA] 90 mcg/actuation HFA aerosol inhaler 1 puff inhalation PRN Patient Comments: INHALE 1-2 PUFFS BY MOUTH EVERY 4 HOURS NEEDED FOR SHORTNESS OF BREATH / DYSPNEA OR WHEEZING DHA 200 mg capsule 200 mg PO DAILY loratadine [Claritin] 10 mg tablet 10 mg PO QDAY PRN escitalopram oxalate [Lexapro] 10 mg tablet 10 mg PO QDAY Qty: 90 1RF acetaminophen 500 mg Tablet 1,000 mg PO Q6H PRN (Reason: Pain) Qty: 0 0RF Follow Up/Referrals: Felicitas Peterson MD [Primary Care Provider] - Stand Alone Forms: Eli Nutrition Info Instructions
--- NOTE | 2023-12-26 16:09 | CRLHL7_ITS ---
For Patients: As a result of the Cures Act, medical imaging exams and procedure reports are released immediately into your electronic medical record. You may view this report before your referring provider. If you have questions, please contact your health care provider. INDICATION: Fall. Arm pain. TECHNIQUE: Left forearm two views. COMPARISON: None. FINDINGS: No acute fracture or dislocation. No additional osseous abnormality. Soft tissue swelling of the proximal dorsal forearm. No radiopaque foreign body. IMPRESSION: No acute osseous abnormality. Dictated by Jw Velazquez MD @ 12/26/2023 5:20:09 PM (Electronically Signed)
[2023-12-26] MEDS: IBUPROFEN 200 MG TABLET 600 MG PO (16:20)
== END 2023-12-26 16:57 | disposition home or self-care (01) ==
PROVIDERS: Emergency Provider Family Medicine; PCP Family Medicine
DX: S63.502A Unspecified sprain of left wrist, initial encounter (principal); S60.212A Contusion of left wrist, initial encounter; W10.9XXA Fall (on) (from) unspecified stairs and steps, initial encounter
CPT/HCPCS: 73090; 99283; 99284; A9270

== ENCOUNTER 2024-03-07 13:24 | Outpatient (CLI) | payer OTHER, SELFPAY | END 2024-03-07 13:25 | disposition home or self-care (01) | PROVIDERS: PCP Family Medicine; Visit Provider Physician Assistant | DX: R63.5 Abnormal weight gain (principal); N92.6 Irregular menstruation, unspecified; E28.2 Polycystic ovarian syndrome | CPT/HCPCS: 80061; 83520; 84443 ==

== ENCOUNTER 2024-05-29 07:06 | Outpatient (CLI) | payer OTHER, SELFPAY ==
--- NOTE | 2024-05-29 07:15 | CRLHL7_ITS ---
For Patients: As a result of the Century Cures Act, medical imaging exams and procedure reports are released immediately into your electronic medical record. You may view this report before your referring provider. If you have questions, please contact your health care provider. INDICATION: Right lower quadrant pain TECHNIQUE: Transabdominal and transvaginal scanning was performed. Transvaginal scanning was performed to optimally evaluate the endometrium and adnexa. Ovarian blood flow was evaluated with color-flow and pulsed Doppler. COMPARISON: None FINDINGS: The uterus is normal in size and shape. The uterus measures 8.0 x 3.8 x 4.5 cm. No myometrial mass is evident. The endometrial stripe is normal in thickness at 10 mm. The ovaries are normal in size and contain a number of follicles. The right ovary measures 3.8 x 2.2 x 1.7 cm and left 3.1 x 2.5 x 2.2 cm. Ovarian blood flow is demonstrated with color-flow and pulsed Doppler. No adnexal mass is evident. No free fluid is demonstrated. IMPRESSION: Negative pelvic ultrasound. Dictated by Remigio Murillo MD @ 05/29/2024 8:16:36 AM (Electronically Signed)
== END 2024-05-29 07:07 | disposition home or self-care (01) ==
LOC: US 07:07
PROVIDERS: PCP Family Medicine; Visit Provider Family Medicine
DX: R10.31 Right lower quadrant pain (principal)
CPT/HCPCS: 76830; 76856; 93976

== ENCOUNTER 2024-07-17 17:12 | Outpatient (CLI) | payer OTHER, SELFPAY | END 2024-07-17 17:13 | disposition home or self-care (01) | PROVIDERS: PCP Family Medicine; Visit Provider Physician Assistant | DX: N64.3 Galactorrhea not associated with childbirth (principal); N91.5 Oligomenorrhea, unspecified | CPT/HCPCS: 82670; 83001; 84146; 84443 ==

== ENCOUNTER 2025-03-12 13:45 | Outpatient (CLI) | payer OTHER, SELFPAY ==
[2025-03-14 18:15] LABS: HPV Source Cervical
[2025-03-21 16:00] LABS: Pap Test Screened Manually Done
== END 2025-03-12 13:46 | disposition home or self-care (01) ==
PROVIDERS: PCP Family Medicine; Visit Provider Obstetrics & Gynecology
DX: Z12.4 Encounter for screening for malignant neoplasm of cervix (principal); N91.5 Oligomenorrhea, unspecified; E66.01 Morbid (severe) obesity due to excess calories; Z68.41 Body mass index [BMI] 40.0-44.9, adult
CPT/HCPCS: 80061; 87624; 87625; 88141; 88142; 88175